=== PATIENT | female | born 1990 | race Caucasian/White ===

== ENCOUNTER 2019-09-12 09:37 | Emergency (ER) | payer OTHER ==
[~2019-09-12] VITALS: Ht 157.5 cm; Wt 90.7 kg
[2019-09-12 09:43] VITALS: BP 136/80
[2019-09-12] MEDS ORDERED: METHOCARBAMOL 500 MG TAB PO ONE (10:45)
[2019-09-12] MEDS ORDERED: IBUPROFEN 800 MG TAB PO ONE (10:45)
== END 2019-09-12 10:41 | disposition home or self-care (01) ==
LOC: ER 09:37
DX: S00.81XA Abrasion of other part of head, initial encounter (principal); M62.838 Other muscle spasm; M25.511 Pain in right shoulder; V89.2XXA Person injured in unspecified motor-vehicle accident, traffic, initial encounter; Y93.89 Activity, other specified; Y92.410 Unspecified street and highway as the place of occurrence of the external cause; Y99.8 Other external cause status
CPT/HCPCS: 70450; 72040

== ENCOUNTER 2022-07-05 21:15 | Emergency (ER) | payer MEDICAID ==
[~2022-07-05] VITALS: Ht 172.7 cm; Wt 90.0 kg
[2022-07-05] MEDS ORDERED: IBUPROFEN 800 MG TAB PO ONE (22:15)
[2022-07-06 00:53] VITALS: BP 140/53
[2022-07-06] MEDS ORDERED: IBUP800T27 PO (02:20)
== END 2022-07-06 03:25 | disposition home or self-care (01) ==
LOC: ER 21:15
DX: S83.91XA Sprain of unspecified site of right knee, initial encounter (principal); J45.909 Unspecified asthma, uncomplicated; W18.39XA Other fall on same level, initial encounter; Y93.89 Activity, other specified; Y92.89 Other specified places as the place of occurrence of the external cause; Y99.8 Other external cause status
CPT/HCPCS: 29505; 73562